=== PATIENT | male | born 2000 | race African-American/Black ===

== ENCOUNTER 2021-02-18 09:16 | Emergency (ER) | payer OTHER, MEDICAID, SELFPAY ==
[2021-02-18 09:53] VITALS: BP 148/71; PULSE 80; RESP 14; TEMP 36.6; O2SAT 100; BMI 27.4
[2021-02-18 10:50] LABS: COVID19 -Nasal RAPID POSITIVE (Negative)
--- NOTE | 2021-02-18 10:59 | ED.URI ---
HPI - URI/Sore Throat General Chief Complaint: Upper Respiratory Symptoms Stated Complaint: loss of hearing, no taste, back pains Time Seen by Provider: 02/18/21 10:40 Source: patient Mode of arrival: Ambulatory History of Present Illness HPI Narrative: Patient is COVID vaccinated. Symptoms started last Tuesday with fever body aches chills nasal and sinus congestion and ear congestion. Has cough but no dyspnea. No nausea or vomiting. Mother is positive for COVID. Related Data Allergies Allergy/AdvReac Type Severity Reaction Status Date / Time No Known Drug Allergies Allergy Verified 02/18/21 09:53 Review of Systems Review of Systems Narrative: GENERAL: Complaintchills, fatigue, malaise, fever, sweats. HEENT: Denies sinus pain, complains ear pain, denies sore throat, complains loss of taste RESPIRATORY: Denies dyspnea, complains cough CARDIOVASCULAR: Denies chest pain, palpitations GASTROINTESTINAL: Denies nausea, vomiting, abdominal pain : Denies dysuria, frequency, hematuria MUSCULOSKELETAL: denies muscle or bony pain SKIN: Denies rash, skin lesions NEUROLOGIC: Denies weakness, numbness ROS Unobtainable: All systems reviewed & are unremarkable except as noted in HPI and below Patient History Social History Smoking Status: Unknown if ever smoked Smoking Status: Unknown if ever smoked alcohol intake frequency: holidays/special occasions only Substance Use Type: does not use Exam Narrative Exam Narrative: GENERAL: in no distress, not toxic not dyspneic HEAD: Normocephalic. EYES: Pupils equal round No scleral icterus. NECK: Trachea midline. CARDIOVASCULAR: Regular rate and rhythm without murmurs RESPIRATORY: Clear to auscultation. Breath sounds equal bilaterally. No wheezes, rales, or rhonchi. Speaking full sentences BACK: No flank tenderness. NEURO: AOx4. SKIN: Warm and dry PSYCH: Not anxious, is cooperative Initial Vital Signs Initial Vital Signs: Vital Signs Temperature 97.9 F 02/18/21 09:53 Pulse Rate 80 02/18/21 09:53 Respiratory Rate 14 02/18/21 09:53 Blood Pressure 148/71 H 02/18/21 09:53 Pulse Oximetry 100 02/18/21 09:53 Course Orders Ordered: ED Orders 02/18/21 09:54 COVID19 -Nasal swab/Pre-Proc Stat Reevaluation(s) Reevaluation #1: Reviewed results with patient and family. Agree with treatment plan is supportive care. Return precautions reviewed with them Time: 11:16 Vital Signs Vital signs: Vital Signs - 8 hr 02/18/21 09:53 Temperature 97.9 F Pulse Rate 80 Respiratory Rate 14 Blood Pressure 148/71 H Pulse Oximetry 100 MDM - URI/Sore Throat Differential Diagnosis Differential diagnosis: Likely viral infection Lab Data Labs: Lab Results 02/18/21 Range/Units 09:54 SARS-CoV-2 (PCR) Positive H (Negative) MDM Narrative Medical decision making narrative: Appropriate for discharge home. Examined laboratory studies otherwise reassuring. Vital signs reassuring. No blood work or imaging indicated. No fever here. No hypoxia tachypnea or tachycardia. Return precautions reviewed with patient. Not toxic in discharge Discharge Plan Departure Patient Disposition: Home Clinical Impression: COVID-19 Instructions: DI for COVID-19 (Suspected or Confirmed ) Activity Restrictions/Additional Instructions: You must quarantine 10 days from 1st day of your symptoms. See family doctor in a week for recheck. Call provided primary care referral phone number to establish family doctor. Call [phone]. Continue ibuprofen Tylenol for pain aches and fevers. Keep well hydrated. Return if worsening questions or concerns or any trouble breathing
== END 2021-02-18 11:03 | disposition home or self-care (01) ==
PROVIDERS: Emergency Provider Emergency Medicine
DX: U07.1 COVID-19 (principal)
CPT/HCPCS: 87635; 99281; 99282; C9803